=== PATIENT | male | born 1980 | race Caucasian/White ===

== ENCOUNTER → 2017-12-02 | Outpatient (CLI) | payer BC ==
[~2017-12-02] MED LIST: IOHEXOL 180 MG/ML 10 ML VIAL.; methylPREDNISolone ACETATE 40 MG/ML VIAL.; methylPREDNISolone ACETATE 80 MG/ML VIAL.
== END | disposition home or self-care (01) ==
LOC: PNCL 08:28
DX: M51.16 Intervertebral disc disorders with radiculopathy, lumbar region (principal); M48.061 Spinal stenosis, lumbar region without neurogenic claudication; Z79.899 Other long term (current) drug therapy; Z82.61 Family history of arthritis; J30.2 Other seasonal allergic rhinitis; Z98.890 Other specified postprocedural states
CPT/HCPCS: 62323; J1030; J1040; Q9965

== ENCOUNTER → 2017-12-20 | Outpatient (CLI) | payer BC ==
[~2017-12-20] MED LIST changes: +LIDOCAINE 1% PF 2 ML VIAL.
== END | disposition home or self-care (01) ==
LOC: PNCL 07:42
DX: M51.16 Intervertebral disc disorders with radiculopathy, lumbar region (principal); M48.061 Spinal stenosis, lumbar region without neurogenic claudication
CPT/HCPCS: 62323; J1030; J1040; Q9965

== ENCOUNTER → 2018-01-10 | Outpatient (CLI) | payer BC | LOC: PNCL 07:57 | DX: M51.16 Intervertebral disc disorders with radiculopathy, lumbar region (principal); M48.061 Spinal stenosis, lumbar region without neurogenic claudication | CPT/HCPCS: 62323; J1030; J1040; Q9965 ==

== ENCOUNTER → 2018-04-19 | Outpatient (CLI) | payer BC ==
[~2018-04-19] MED LIST changes: +GABA-585 PO; +IBUP-1007 PO; -IOHEXOL 180 MG/ML 10 ML VIAL.; -LIDOCAINE 1% PF 2 ML VIAL.; +LORA10TA68 PO; +MULT1TAB52 PO; +NAPR220T70 PO; -methylPREDNISolone ACETATE 40 MG/ML VIAL.; -methylPREDNISolone ACETATE 80 MG/ML VIAL.
--- NOTE | 2018-04-19 21:09 | PAIN ---
DATE OF SERVICE: 04/19/2018 PROGRESS NOTE FOR PAIN CLINIC DIAGNOSIS: Lumbar radiculopathy with lumbar spinal stenosis and lumbar herniated disk. HISTORY OF PRESENT ILLNESS: The patient is a 38-year-old male who returns for followup status post lumbar epidural steroid injection x 3, last seen on 01/10/2018. The patient did well with the injection, about 85% improved, but still significant pain in the low back and left lower extremity as it was. The patient reports it has been returning now over the past month or so, increasing with activity, standing, walking and changing positions, even for more than 10-15 minutes on his feet. It is radiating into the posterior gluteus, posterior thigh, posterior calf and into the foot with numbness and tingling and even some weakness at times when he is walking more than 10 minutes. The patient reports it is sharp, shooting, becoming more unbearable, more severe, rates as a 5 on a scale of 10 at its worst, 4 on average, 4 at its least and is a 4 today. The patient reports he is sleeping well at night, however, he will stay off his feet. Sitting and resting helps the pain significantly, helps with lying down. The patient reports no new motor or sensory deficits, no new bowel or bladder incontinence. PHYSICAL EXAMINATION: VITAL SIGNS: The patient's blood pressure 119/81, pulse 80, respirations 18, temperature 97.9 degrees Fahrenheit, height is 6 feet, weight is 228 pounds. GENERAL: The patient is awake, alert, oriented, appropriate, very pleasant demeanor. HEENT: Head shows normocephalic, atraumatic. Extraocular movements are intact and symmetrical. Oral cavity: Mucous membranes are moist and pink. Dentition is intact. NECK: Shows anterior throat supple without palpable lymphadenopathy noted. Swallow reflex is symmetrical. CHEST: Shows normal on inspection. Breath sounds are clear to auscultation bilaterally. HEART: Shows S1, S2 clear. No murmurs auscultated. ABDOMEN: Soft, nontender, nondistended. No palpable organomegaly is noted. No rebound or guarding demonstrated. BACK: Shows spine grossly in the midline. Normal appearing thoracic kyphosis and lumbar lordotic curvature. Lumbar paraspinous muscle shows symmetrical on inspection, on palpation shows some moderate tenderness diffusely throughout the middle and lower distribution of paraspinous musculature bilaterally. The patient shows good rotational motion of lumbar spine, both laterally as well as extension and flexion without significant pain reported. EXTREMITIES: Lower extremities show deep tendon reflexes 2+ in the patellar and 1+ tendo calcaneus tendons. Motor exam is approximately 4 on a scale of 5 with left dorsiflexion and extension and 5/5 on the right. Peripheral pulses are 1+ posterior tibia. No peripheral edema is noted. The patient continues to have a positive straight leg raise on the left side about 40 degrees, decreased with knee flexion, right side is negative. Options were discussed with the patient. The patient's old chart was reviewed as his current medication regimen updated. Current review of systems updated today as well. We will hold on further injections. It has not been 6 months since his previous injection. The patient has some [facility] paperwork to be filled out today and we will go over this with him and fill it out as best as possible. The patient has had a note from his primary physician to be off work since March. We will extend this for another 6 weeks. We will give him time to come back for another epidural steroid injection. If not significantly improved after that point, we would recommend a neurosurgical evaluation for the L5-S1 disk herniation. The patient should have restrictions with work including not standing or walking greater than 10-15 minutes, not lifting greater than 20 pounds, no twisting, bending and stooping. No crawling activities and no standing or walking without a break to sit and rest for 10 minutes in between. The patient understands and agrees. We will follow up in approximately 6 weeks for a final lumbar epidural steroid injection at that time and reassessment of his response. MISTI GUTIERREZ MD DR: PAWEL/uma JOB#: [id number] / [id number]
== END | disposition home or self-care (01) ==
LOC: PNCL 09:09
PROVIDERS: ATTEND Anesthesiology
DX: M51.16 Intervertebral disc disorders with radiculopathy, lumbar region (principal); M48.061 Spinal stenosis, lumbar region without neurogenic claudication
CPT/HCPCS: 99212

== ENCOUNTER → 2018-06-05 | Outpatient (CLI) | payer BC ==
[~2018-06-05] MED LIST changes: +HEPARIN for IV BOLUS 10,000 UNIT/10 ML VIAL. ONE; +IOHEXOL 180 MG/ML 10 ML VIAL. ONE; +LIDOCAINE WITH 8.4% SOD BICARB 3 ML DISP.SYRIN. ONE; +methylPREDNISolone ACETATE 40 MG/ML VIAL. ONE; +methylPREDNISolone ACETATE 80 MG/ML VIAL. ONE
--- NOTE | 2018-06-05 11:38 | PAIN ---
DATE OF SERVICE: 06/05/2018 PROGRESS NOTE FOR PAIN CLINIC DIAGNOSES: Lumbar radiculopathy with lumbar spinal stenosis and lumbar herniated disk. HISTORY OF PRESENT ILLNESS: The patient is a 38-year-old male who returns for followup status post lumbar epidural steroid injections x 3, most recently on January 10. The patient did very well with oral steroid pack on April 19 and has the pain reduction about 90% at this time. The patient has not been working, would like to return to work as soon as possible. We discussed this in some great detail with him and his mother today. The patient reports pain still in the low back, left lower extremity, posterior gluteus, posterior thigh, posterior calf as it was. The tingling is much better and his foot is even better. The patient reports he has been increasing activity with greater ease and comfort, walking, doing household activities with much greater ability and comfort. The patient reports the pain is tingling, dull, on and off in intensity, was a 4 on a scale of 10 on average, worst and its least and is a 4 today. The patient reports no new motor or sensory deficits and no new bowel or bladder incontinence or other complaints. PHYSICAL EXAMINATION: VITAL SIGNS: The blood pressure 124/81, pulse 84, respirations 16 and temperature 98.1 degrees Fahrenheit. Weight is 231 pounds. GENERAL: The patient is awake, alert, oriented, appropriate and very pleasant demeanor. HEENT: Head shows normocephalic and atraumatic. Extraocular movements are intact and symmetrical. Oral cavity: Mucous membranes moist and pink. Dentition is intact. NECK: Shows anterior throat supple without palpable lymphadenopathy noted. Swallow reflex is symmetrical. CHEST: Shows normal on inspection. Breath sounds clear to auscultation bilaterally. HEART: Shows S1 and S2 clear. No murmurs auscultated. ABDOMEN: Soft, nontender and nondistended. No palpable organomegaly is noted. No rebound or guarding demonstrated. BACK: Shows spine grossly in the midline. Normal appearing thoracic kyphosis and lumbar lordotic curvature. Lumbar paraspinous muscle shows symmetrical on inspection with palpation shows some moderate tenderness diffusely in the low lumbar distribution but only diffusely without radiation. The patient has good rotational motion both laterally as well as extension and flexion without significant difficulty in the lumbar spine. EXTREMITIES: The patient's lower extremities show deep tendon reflexes at 2+ in the patellar and 1+ tendo-calcaneus tendons. Motor exam is strong with 4/5 on the left and 5/5 on the right with dorsiflexion, extension, quadriceps and hamstring flexion. Peripheral pulses are 1+ posterior tibia. No peripheral edema is noted bilaterally. Options were discussed with the patient. The patient's mother has accompanied with him today. Old chart was reviewed as was his current medication list updated and review of systems updated as well. We will proceed with a lumbar epidural steroid injection today, first in this series. Risks were again discussed including, but not limited to bleeding, infection, possibility of epidural hematoma and subsequent neurological compromise, dural puncture, headaches, spinal cord and/or nerve damage, side effects of steroid medication and poor results regarding pain control. The patient understands and wished to proceed. The patient will return to the clinic in approximately 2 weeks for followup, was counseled as to return appointment, activity level and side effects to be aware of. We discussed the patient's ability to return to work. He would like to return without restrictions. We will allow this in approximately one week from today's date which will be the 12 of June. The patient also will be given a prescription for a lumbar supportive brace to wear while he is at work to help with body mechanics and core strengthening while he is working. The patient would like to get back to work soon and we will give him relief to do that in approximately 1 week. DIAGNOSES: Lumbar radiculopathy with lumbar spinal stenosis and lumbar herniated disk. PROCEDURE: Lumbar epidural steroid injection, translaminar approach at L5-S1 level using C-arm fluoroscopic guidance under sterile prep and drape using local anesthetic. MEDICATION INJECTED: A total of 120 mg Depo-Medrol plus 10 mL of preservative-free normal saline and 2 mL of Isovue for contrast. CONDITION AT DISCHARGE: Stable. The patient tolerated the procedure well and had no complications. MISTI GUTIERREZ MD DR: PAWEL/uma JOB#: [id number] / [id number]
== END | disposition home or self-care (01) ==
LOC: PNCL 09:36
PROVIDERS: ATTEND Anesthesiology
DX: M51.16 Intervertebral disc disorders with radiculopathy, lumbar region (principal); M48.061 Spinal stenosis, lumbar region without neurogenic claudication
CPT/HCPCS: 62323; J1030; J1040; J1644; Q9965

== ENCOUNTER → 2018-06-27 | Outpatient (CLI) | payer BC ==
[~2018-06-27] MED LIST changes: -HEPARIN for IV BOLUS 10,000 UNIT/10 ML VIAL. ONE; -IOHEXOL 180 MG/ML 10 ML VIAL. ONE; -LIDOCAINE WITH 8.4% SOD BICARB 3 ML DISP.SYRIN. ONE; -methylPREDNISolone ACETATE 40 MG/ML VIAL. ONE; -methylPREDNISolone ACETATE 80 MG/ML VIAL. ONE
--- NOTE | 2018-06-27 09:57 | PAIN ---
DATE OF SERVICE: 06/27/2018 DIAGNOSES: Lumbar radiculopathy with lumbar spinal stenosis and lumbar herniated disk. HISTORY OF PRESENT ILLNESS: The patient is a 38-year-old male who returns for followup status post lumbar epidural steroid injection x 1, most recently 06/05/2018. The patient did very well, reports about 98% improvement after the last injection, still lasting. He has some pain in the low back and left lower extremity, much better than it was. Still some pain radiating to posterior gluteus, posterior thigh, especially in the calf, worse with walking, standing, changing positions and no lifting or bending. The patient reports it is a tingling sensation as well as sharp and shooting and sometimes dull. The patient reports the pain is a 2 on a scale of 10 at its average, worst and least and is a 2 today. The patient reports doing much better. 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 The patient reports he has been sleeping well at night, increase his activity, distance walking, return to work and doing household activities as well with much greater ease and comfort. The patient reports no new motor or sensory deficits, no new bowel or bladder incontinence or other complaints. PHYSICAL EXAMINATION: VITAL SIGNS: The patient's blood pressure 124/77, pulse 79, respirations are 18, temperature 98.3 degrees Fahrenheit, height is 6 feet, weight is 236 pounds. GENERAL: The patient is awake, alert, oriented, appropriate, very pleasant demeanor. HEENT: Head shows normocephalic, atraumatic. Extraocular movements intact and symmetrical. Oral cavity: Mucous membranes moist and pink. Dentition intact. NECK: Shows anterior throat supple without palpable lymphadenopathy noted. Swallow reflex symmetrical. CHEST: Shows normal on inspection. Breath sounds clear to auscultation bilaterally. HEART: Shows S1, S2 clear. No murmurs auscultated. ABDOMEN: Soft, nontender, nondistended. No palpable organomegaly is noted. No rebound or guarding demonstrated. BACK: Shows spine grossly in the midline. Normal appearing thoracic kyphosis and some minor flattening of lumbar lordotic curvature. Lumbar paraspinous muscle shows symmetrical on inspection with palpation shows some mild tenderness, but only diffusely in the low lumbar distribution without significant radiation, without difficulty with rotational motion, which is performed fully without difficulty right and left as well as extension and flexion without significant pain reported. EXTREMITIES: The patient's lower extremities show deep tendon reflexes 2+ in the patellar, 1+ tendo calcaneus tendons. Motor exam is strong with 5/5 dorsiflexion, extension on the right and 4/5 on the left, but still strong. Peripheral pulses are 1+ posterior tibia. No peripheral edema is noted bilaterally. Options were discussed with the patient. The patient's old chart was reviewed as his current medication regimen updated. Current review of systems updated today as well. We will hold on any further injections at that time as he is doing quite better. He has increased his activity, has now returned to work with a good ability and comfort. Again, I encouraged him to wear his back brace while he is working, but not otherwise. The patient will follow up at this time on an as needed basis, will continue increasing activity as tolerated. MISTI GUTIERREZ MD DR: PAWEL/uma JOB#: [id number] / [id number]
== END | disposition home or self-care (01) ==
LOC: PNCL 08:03
PROVIDERS: ATTEND Anesthesiology
DX: M51.16 Intervertebral disc disorders with radiculopathy, lumbar region (principal); M48.061 Spinal stenosis, lumbar region without neurogenic claudication
CPT/HCPCS: G0463